=== PATIENT | female | born 1965 | race Caucasian/White ===

== ENCOUNTER → 2017-12-02 07:45 | Outpatient (CLI) | payer OTHER | LOC: D.MAMMO 07:45 | DX: Z12.31 Encounter for screening mammogram for malignant neoplasm of breast (principal) ==

== ENCOUNTER → 2018-02-03 09:31 | Outpatient (CLI) | payer OTHER | END | disposition home or self-care (01) | LOC: D.CT 01-29 08:30 | DX: R10.9 Unspecified abdominal pain (principal) ==

== ENCOUNTER 2019-07-31 09:00 | Outpatient (CLI) | payer OTHER | END 2019-07-31 10:00 | disposition home or self-care (01) | LOC: D.MAMMO 09:00 | PROVIDERS: ATTEND Family Medicine | DX: Z12.31 Encounter for screening mammogram for malignant neoplasm of breast (principal) ==

== ENCOUNTER → 2019-08-28 10:40 | Outpatient (CLI) | payer OTHER | END | disposition home or self-care (01) | LOC: D.CT 10:40 | PROVIDERS: ATTEND Family Medicine | DX: R10.9 Unspecified abdominal pain (principal) ==

== ENCOUNTER 2019-09-28 08:00 | Outpatient (CLI) | payer OTHER | END 2019-09-28 23:59 | disposition home or self-care (01) | LOC: D.MAMMO 08:00 | PROVIDERS: ATTEND Family Medicine | DX: R92.8 Other abnormal and inconclusive findings on diagnostic imaging of breast (principal) ==